=== PATIENT | male | born 1965 | race Caucasian/White ===

== ENCOUNTER 2018-02-05 13:44 | Observation (INO) | payer BC ==
[~2018-02-05] VITALS: Ht 175.3 cm; Wt 196.4 kg
[2018-02-05] VITALS (7 sets, daily range): BP systolic 89–148; BP diastolic 65–90; PULSE 94–130; RESP 16–18; TEMP 99.1; O2SAT 97–98
[~2018-02-05 13:44] MED LIST: ATEN100T PO; BUPR100T4 PO; DIGO0.25 PO; LOSA100T2 PO; MATZ240T PO; XARE20TA PO
[2018-02-05] MEDS ORDERED: METOPROLOL TARTRATE 5 MG/5 ML VIAL IV PUSH ONE (14:15)
--- NOTE | 2018-02-05 14:18 | PD ---
HPI Chief Complaint: Cardiac Complaint Time Seen by Provider: 13:53 Travel History International Travel<30 days: No Contact w/Intl Traveler<30days: No Traveled to known affect area: No History of Present Illness HPI 52 y/o male presents with atrial flutter and was sent from Dr. Becerril's office for rate control and further care. He states that he felt like he developed the symptoms this morning and this was confirmed that he was in atrial flutter again at Dr. Becerril's office. He states he has been off his digoxin for the past week. He denies any other concurrent complaints other than palpitations. Quality is irregular. Severity is in the 120s. He denies specific modifying factors. Duration is since this morning. PFSH Past Medical History Atrial Fibrillation: Yes Hypertension: Yes Tetanus Vaccination: > 5 Years Influenza Vaccination: No ?: Not Social History Alcohol Use: No Tobacco Use: No Substance Use: No Allergies-Medications (Allergen,Severity, Reaction): Coded Allergies: No Known Allergies (Unverified , 09/11/16) Reported Meds & Prescriptions Reported Meds & Active Scripts Active Reported Digoxin 0.25 Mg Tab 0.25 Mg PO DAILY Matzim LA (Diltiazem ER 24 HR) 240 Mg Jael 240 Mg PO DAILY Bupropion HCl 100 Mg Tab 100 Mg PO BID Losartan-Hydrochlorothiazide 100-25 Mg Tab 1 Tab PO DAILY Atenolol 100 Mg Tab 100 Mg PO BID Xarelto (Rivaroxaban) 20 Mg Tab 20 Mg PO DAILY Review of Systems Except as stated in HPI: all other systems reviewed are Neg Physical Exam Narrative GENERAL: 52 y/o male in no apparent distress SKIN: Focused skin assessment warm/dry. HEAD: Atraumatic. Normocephalic. EYES: Pupils equal and round. No scleral icterus. No injection or drainage. ENT: No nasal bleeding or discharge. Mucous membranes pink and moist. NECK: Trachea midline. CARDIOVASCULAR: Regular rate and rhythm. RESPIRATORY: No accessory muscle use. no increased effort. GASTROINTESTINAL: Abdomen soft, non-tender, nondistended. MUSCULOSKELETAL: No obvious deformities. NEUROLOGICAL: Awake and alert. No obvious cranial nerve deficits. Motor grossly within normal limits. Normal speech. PSYCHIATRIC: Appropriate mood and affect; insight and judgment normal. Data Data Last Documented VS Vital Signs Date Time Temp Pulse Resp B/P (MAP) Pulse Ox O2 Delivery O2 Flow Rate FiO2 02/05/18 14:09 97 Room Air 02/05/18 14:03 110 18 02/05/18 13:50 99.1 Orders Orders Thyroid Stimulating Hormone (02/05/18 14:03) Magnesium (Mg) (02/05/18 14:03) Phosphorus (Po4) (02/05/18 14:03) Complete Blood Count With Diff (02/05/18 14:03) Comprehensive Metabolic Panel (02/05/18 14:03) Ckmb (Isoenzyme) Profile (02/05/18 14:03) Troponin I (02/05/18 14:03) Act Partial Throm Time (Ptt) (02/05/18 14:03) Prothrombin Time / Inr (Pt) (02/05/18 14:03) B-Type Natriuretic Peptide (02/05/18 14:03) Chest, Single Ap (02/05/18 ) Electrocardiogram (02/05/18 ) Iv Access Insert/Monitor (02/05/18 14:03) Ecg Monitoring (02/05/18 14:03) Oximetry (02/05/18 14:03) Metoprolol Tartrate Inj (Lopressor Inj) (02/05/18 14:15) CKMB (02/05/18 14:15) CKMB% (02/05/18 14:15) Digoxin Inj (Lanoxin Inj) (02/05/18 15:45) Diltiazem (Cardizem) (02/05/18 15:45) Dextrose 5% In Wate... W/Amiodarone Inj (02/05/18 15:49) Sodium Chloride 0.9% Flush (Ns Flush) (02/05/18 15:45) Dextrose 5% In Wate... W/Amiodarone Inj (02/05/18 15:34) Admit Order (Ed Use Only) (02/05/18 15:47) Labs Laboratory Tests Test 02/05/18 14:10 02/05/18 14:15 Prothrombin Time 10.9 SEC Prothromb Time International Ratio 1.1 RATIO Activated Partial Thromboplast Time 30.1 SEC White Blood Count 11.0 TH/MM3 Red Blood Count 5.53 MIL/MM3 Hemoglobin 14.4 GM/DL Hematocrit 43.3 % Mean Corpuscular Volume 78.4 FL Mean Corpuscular Hemoglobin 26.1 PG Mean Corpuscular Hemoglobin Concent 33.3 % Red Cell Distribution Width 14.9 % Platelet Count 277 TH/MM3 Mean Platelet Volume 8.1 FL Neutrophils (%) (Auto) 74.7 % Lymphocytes (%) (Auto) 16.4 % Monocytes (%) (Auto) 7.1 % Eosinophils (%) (Auto) 1.3 % Basophils (%) (Auto) 0.5 % Neutrophils # (Auto) 8.2 TH/MM3 Lymphocytes # (Auto) 1.8 TH/MM3 Monocytes # (Auto) 0.8 TH/MM3 Eosinophils # (Auto) 0.1 TH/MM3 Basophils # (Auto) 0.1 TH/MM3 CBC Comment DIFF FINAL Differential Comment Blood Urea Nitrogen 20 MG/DL Creatinine 1.01 MG/DL Random Glucose 92 MG/DL Total Protein 7.4 GM/DL Albumin 3.7 GM/DL Calcium Level 9.1 MG/DL Phosphorus Level 2.9 MG/DL Magnesium Level 2.0 MG/DL Alkaline Phosphatase 72 U/L Aspartate Amino Transf (AST/SGOT) 29 U/L Alanine Aminotransferase (ALT/SGPT) 42 U/L Total Bilirubin 0.4 MG/DL Sodium Level 140 MEQ/L Potassium Level 4.0 MEQ/L Chloride Level 106 MEQ/L Carbon Dioxide Level 26.5 MEQ/L Anion Gap 8 MEQ/L Estimat Glomerular Filtration Rate 78 ML/MIN Total Creatine Kinase 349 U/L Creatine Kinase MB 10.0 NG/ML Creatine Kinase MB % 2.9 % Troponin I LESS THAN 0.02 NG/ML B-Type Natriuretic Peptide 143 PG/ML Thyroid Stimulating Hormone 3rd Gen 1.290 uIU/ML MDM Medical Decision Making Medical Screen Exam Complete: Yes Emergency Medical Condition: Yes Medical Record Reviewed: Yes (pmh confirmed) Interpretation(s) CBC & BMP Diagram 02/05/18 14:15 Total Protein 7.4, Albumin 3.7, Calcium Level 9.1, Phosphorus Level 2.9, Magnesium Level 2.0, Alkaline Phosphatase 72, Aspartate Amino Transf (AST/SGOT) 29, Alanine Aminotransferase (ALT/SGPT) 42, Total Bilirubin 0.4 Last 24 hours Impressions Chest X-Ray 02/05/18 0000 Signed Impressions: Service Date/Time: Monday, February 05, 2018 14:37 - CONCLUSION: 1. No acute cardiopulmonary disease. Adams Menard MD Differential Diagnosis A flutter, A. fib, electrolyte abnormality Narrative Course we will check blood work, imaging and reevaluate, patient given small dose of IV metoprolol but this quickly wore off and we are out of IV Cardizem. Will discuss with his form setter Will dose with amiodarone after discussion with form setter and admit to the hospital for further care. Critical Care Narrative Aggregate critical care time was 35 minutes. Time to perform other separately billable procedures was not included in the critical care time. My time did not include minutes spent treating any other patients simultaneously or on activities that did not directly contribute to the patient's treatment. The services I provided to this patient were to treat and/or prevent clinically significant deterioration that could result in: hypotension, I provided critical care services requiring my management, as noted below: Chart data review, documentation time, medication orders and management, vital sign assessments/reviewing monitor data, ordering and reviewing lab tests, ordering and interpreting/reviewing x-rays and diagnostic studies, care of the patient and discussion of the patient with the admitting physicians. Physician Communication Physician Communication dr becerril originally requested IV digoxin and p.o. Cardizem but given patient just went into this rhythm he requested amiodarone bolus and drip which was ordered. He states not to give IV digoxin or p.o. Cardizem. dr sanchez agrees to admit Diagnosis Primary Impression: Atrial flutter with rapid ventricular response Admitting Information Admitting Physician Requests: Admit Amber Jackson MD Feb 05, 2018 14:18
[2018-02-05 14:29] LABS: AUTOMATED NEUTROPHIL # 8.2 TH/MM3 (1.8-7.7); BASOPHIL # 0.1 TH/MM3 (0-0.2); BASOPHIL % 0.5 % (0.0-2.0); EOSINOPHIL # 0.1 TH/MM3 (0-0.4); EOSINOPHIL % 1.3 % (0.0-4.0); HEMATOCRIT 43.3 % (39.0-51.0); HEMOGLOBIN 14.4 GM/DL (13.0-17.0); LYMPH % 16.4 % (9.0-44.0); LYMPHOCYTE # 1.8 TH/MM3 (1.0-4.8); MEAN CELL VOLUME 78.4 FL (80.0-100.0); MEAN CORPUSCULAR HEMOGLOBIN 26.1 PG (27.0-34.0); MEAN CORPUSCULAR HGB CONC 33.3 % (32.0-36.0); MEAN PLATELET VOLUME 8.1 FL (7.0-11.0); MONO % 7.1 % (0.0-8.0); MONOCYTE # 0.8 TH/MM3 (0-0.9); NEUT % 74.7 % (16.0-70.0); PLATELET COUNT 277 TH/MM3 (150-450); RED BLOOD COUNT 5.53 MIL/MM3 (4.50-5.90); RED CELL DISTRIBUTION WIDTH 14.9 % (11.6-17.2)
[2018-02-05 14:43] LABS: INTERNATIONAL NORMALIZED RATIO 1.1 RATIO; PROTHROMBIN TIME - PATIENT 10.9 SEC (9.8-11.6)
[2018-02-05 14:48] LABS: ALBUMIN 3.7 GM/DL (3.4-5.0); ALT (GPT) 42 U/L (12-78); AST (GOT) 29 U/L (15-37); BICARBONATE 26.5 MEQ/L (21.0-32.0); BLOOD UREA NITROGEN 20 MG/DL (7-18); CALCIUM 9.1 MG/DL (8.5-10.1); CHLORIDE 106 MEQ/L (98-107); CREATININE 1.01 MG/DL (0.60-1.30); GLOMERULAR FILTRATION RATE 78 ML/MIN (>89); GLUCOSE,RANDOM 92 MG/DL (74-106); PHOSPHORUS 2.9 MG/DL (2.5-4.9); SODIUM (NA) 140 MEQ/L (136-145)
[2018-02-05 14:57] LABS: ALKALINE PHOSPHATASE 72 U/L (45-117); TOTAL BILIRUBIN ADULT 0.4 MG/DL (0.2-1.0); TOTAL PROTEIN 7.4 GM/DL (6.4-8.2); TROPONIN I LESS THAN 0.02 NG/ML (0.02-0.05)
--- NOTE | 2018-02-05 15:22 | RADRPT ---
EXAM DATE/TIME: 02/05/2018 14:37 [facility] COMPARISON: No previous studies available for comparison. INDICATIONS : Palpitations MEDICAL HISTORY : atrial fibrillation SURGICAL HISTORY : None. ENCOUNTER: Initial ACUITY: 1 day PAIN SCORE: 0/10 LOCATION: Bilateral chest FINDINGS: A single view of the chest demonstrates the lungs to be symmetrically aerated without evidence of mas s, infiltrate or effusion. Cardiomegaly. The cardiomediastinal contours are unremarkable. Osseous s tructures are intact. CONCLUSION: 1. No acute cardiopulmonary disease. Adams Menard MD on February 05, 2018 at 15:19 Board Certified Radiologist. This report was verified electronically.
[2018-02-05] MEDS ORDERED: AMIODARONE INJ 150 MG in DEXTROSE 5% IN WATER 100ML INJ 97 ML IV ONE ×2 (15:34)
[2018-02-05] MEDS ORDERED: DILTIAZEM HCL 60 MG TAB PO ONE (15:45)
[2018-02-05] MEDS ORDERED: DIGOXIN 0.5 MG/2 ML VIAL IV PUSH ONE (15:45)
[2018-02-05] MEDS ORDERED: SODIUM CHLORIDE 0.9% FLUSH 10 ML FLUSH IVF PRN (15:45)
[2018-02-05] MEDS ORDERED: AMIODARONE INJ 450 MG in DEXTROSE 5% IN WATE(EXCEL) INJ 241 ML IV SCH ×2 (15:49)
[2018-02-05] MEDS ORDERED: SENNOSIDES 8.6 MG TAB PO PRN (16:00)
[2018-02-05] MEDS ORDERED: NALOXONE HCL 0.4 MG/ML AMP IV PUSH PRN (16:00)
[2018-02-05] MEDS ORDERED: BISACODYL 10 MG SUPP RECTAL PRN (16:00)
[2018-02-05] MEDS ORDERED: MAGNESIUM HYDROXIDE SUSP 30 ML CUP PO PRN (16:00)
[2018-02-05] MEDS ORDERED: LACTULOSE SYRUP 20 GM/30 ML CUP PO PRN (16:00)
[2018-02-05] MEDS ORDERED: SODIUM CHLORIDE 0.9% FLUSH 10 ML FLUSH IV FLUSH PRN (16:00)
--- NOTE | 2018-02-05 17:53 | HHI.HP ---
[facility] Non-Staff Admission Diagnosis atrial flutter with rvr Diagnoses: (1) Atrial flutter with rapid ventricular response Diagnosis: Principal Chief Complaint: I knew I was in a.flutter that is why I went to my [employer] office, then he sent me here. Travel History International Travel<30 Days: No Contact w/Intl Traveler <30 Da: No Traveled to Known Affected Are: No History of Present Illness Written by Daniel Bowen, acting as scribe for Dr. Degroot on 02/05/18 at 17:53. 52-year-old male with PHM of a. flutter with cardioversion, HTN, and DANYEL who states he was at home this morning when he felt as if he was anxious. He took his BP and noticed that his HR was elevated, he knew that he was in atrial flutter so he decided to go to his boat [employer] office . He had an EKG done and was noted to be in a flutter, he was sent to the ER for further rate control. He repots being compliant with his Xarelto at home, but does state that he has been out of his digoxin for the past week. He will be having bariatric surgery soon and was hoping to come off of as many medications as possible. He denies any chest pain, SOB, fevers, chills, nausea, vomiting, constipation, diarrhea, dizziness, lightheadedness, chest pain or pressure. He does report a cough which he states has been going on for the past 3 days, his mother at bedside states patient has always had a cough. Patient states that this time this cough has been to the point that he will have a coughing spell and this will make him SOB. Cough is productive at times. He tried a cough suppressant OTC. He also repots right ear pain which began this past Sunday, but is much better now. Overall he repots feeling fine and would like to know if he can eat. Review of Systems Except as stated in HPI: all other systems reviewed are Neg Past Family Social History Past Medical History atrial flutter with cardioversion on August of 2016 HTN DANYEL obesity Past Surgical History Right orthoscopic knee surgery Reported Medications Reported Meds & Active Scripts Active Reported Digoxin 0.25 Mg Tab 0.25 Mg PO DAILY Matzim LA (Diltiazem ER 24 HR) 240 Mg Jael 240 Mg PO DAILY Bupropion HCl 100 Mg Tab 100 Mg PO BID Losartan-Hydrochlorothiazide 100-25 Mg Tab 1 Tab PO DAILY Atenolol 100 Mg Tab 100 Mg PO BID Xarelto (Rivaroxaban) 20 Mg Tab 20 Mg PO DAILY Allergies: Coded Allergies: No Known Allergies (Unverified , 09/11/16) Family History Denies any past family history Social History Denies any tobacco, alcohol or illicit drug use Physical Exam Vital Signs Vital Signs Date Time Temp Pulse Resp B/P (MAP) Pulse Ox O2 Delivery O2 Flow Rate FiO2 02/05/18 14:09 97 Room Air 02/05/18 14:03 110 18 Room Air 02/05/18 14:03 110 18 120/77 (91) 97 Room Air 02/05/18 13:50 99.1 125 18 148/90 (109) 97 Physical Exam GENERAL: This is well-developed obese male, in no apparent distress. SKIN: No rashes, ecchymoses or lesions. Cool and dry. HEAD: Atraumatic. Normocephalic. EYES: Pupils equal round and reactive. Extraocular motions intact. No scleral icterus. No injection or drainage. ENT: Nose without bleeding, purulent drainage. Throat without erythema, tonsillar hypertrophy or exudate. Uvula midline. Airway patent. Right ear canal with small pimple, no purulent drainage noted. NECK: Trachea midline. No JVD or lymphadenopathy. Supple, nontender, no meningeal signs. CARDIOVASCULAR: Irregular rate and rhythm without murmurs, gallops, or rubs. RESPIRATORY: Clear to auscultation. Breath sounds equal bilaterally. No wheezes , rales, or rhonchi. GASTROINTESTINAL: Abdomen soft, non-tender, nondistended. Normoactive bowel sounds. No guarding. MUSCULOSKELETAL: Extremities without clubbing, cyanosis, or edema. No joint tenderness, effusion, or edema noted. No calf tenderness. NEUROLOGICAL: Awake and alert. Cranial nerves II through XII grossly intact. Motor and sensory grossly within normal limits. Five out of 5 muscle strength in all muscle groups. Normal speech. Laboratory Laboratory Tests Test 02/05/18 14:10 02/05/18 14:15 Prothrombin Time 10.9 Prothromb Time International Ratio 1.1 Activated Partial Thromboplast Time 30.1 White Blood Count 11.0 Red Blood Count 5.53 Hemoglobin 14.4 Hematocrit 43.3 Mean Corpuscular Volume 78.4 Mean Corpuscular Hemoglobin 26.1 Mean Corpuscular Hemoglobin Concent 33.3 Red Cell Distribution Width 14.9 Platelet Count 277 Mean Platelet Volume 8.1 Neutrophils (%) (Auto) 74.7 Lymphocytes (%) (Auto) 16.4 Monocytes (%) (Auto) 7.1 Eosinophils (%) (Auto) 1.3 Basophils (%) (Auto) 0.5 Neutrophils # (Auto) 8.2 Lymphocytes # (Auto) 1.8 Monocytes # (Auto) 0.8 Eosinophils # (Auto) 0.1 Basophils # (Auto) 0.1 CBC Comment DIFF FINAL Differential Comment Blood Urea Nitrogen 20 Creatinine 1.01 Random Glucose 92 Total Protein 7.4 Albumin 3.7 Calcium Level 9.1 Phosphorus Level 2.9 Magnesium Level 2.0 Alkaline Phosphatase 72 Aspartate Amino Transf (AST/SGOT) 29 Alanine Aminotransferase (ALT/SGPT) 42 Total Bilirubin 0.4 Sodium Level 140 Potassium Level 4.0 Chloride Level 106 Carbon Dioxide Level 26.5 Anion Gap 8 Estimat Glomerular Filtration Rate 78 Total Creatine Kinase 349 Creatine Kinase MB 10.0 Creatine Kinase MB % 2.9 Troponin I LESS THAN 0.02 B-Type Natriuretic Peptide 143 Thyroid Stimulating Hormone 3rd Gen 1.290 Result Diagram: 02/05/18 1415 02/05/18 1415 Imaging Last Impressions Chest X-Ray 02/05/18 0000 Signed Impressions: Service Date/Time: Monday, February 05, 2018 14:37 - CONCLUSION: 1. No acute cardiopulmonary disease. Adams Menard MD Caprini VTE Risk Assessment Caprini VTE Risk Assessment: No/Low Risk (score <= 1) Caprini Risk Assessment Model Point Value = 1 Point Value = 2 Point Value = 3 Point Value = 5 Age 41-60 Minor surgery BMI > 25 kg/m2 Swollen legs Varicose veins or History of unexplained or recurrent spontaneous Oral contraceptives or hormone replacement Sepsis (< 1 month) Serious lung disease, including pneumonia (< 1 month) Abnormal pulmonary function Acute myocardial infarction Congestive heart failure (< 1 month) History of inflammatory bowel disease Medical patient at bed rest Age 61-74 Arthroscopic surgery Major open surgery (> 45 min) Laparoscopic surgery (> 45 min) Malignancy Confined to bed (> 72 hours) Immobilizing plaster cast Central venous access Age >= 75 History of VTE Family history of VTE Factor V Leiden Prothrombin [id number] Lupus anticoagulant Anticardiolipin antibodies Elevated serum homocysteine Heparin-induced thrombocytopenia Other congenital or acquired thrombophilia Stroke (< 1 month) Elective arthroplasty Hip, pelvis, or leg fracture Acute spinal cord injury (< 1 month) Prophylaxis Regimen Total Risk Factor Score Risk Level Prophylaxis Regimen 0-1 Low Early ambulation 2 Moderate Order ONE of the following: *Sequential Compression Device (SCD) *Heparin 5000 units SQ BID 3-4 Higher Order ONE of the following medications: *Heparin 5000 units SQ TID *Enoxaparin/Lovenox 40 mg SQ daily (WT < 150 kg, CrCl > 30 mL/min) *Enoxaparin/Lovenox 30 mg SQ daily (WT < 150 kg, CrCl > 10-29 mL/min) *Enoxaparin/Lovenox 30 mg SQ BID (WT < 150 kg, CrCl > 30 mL/min) AND/OR *Sequential Compression Device (SCD) 5 or more Highest Order ONE of the following medications: *Heparin 5000 units SQ TID (Preferred with Epidurals) *Enoxaparin/Lovenox 40 mg SQ daily (WT < 150 kg, CrCl > 30 mL/min) *Enoxaparin/Lovenox 30 mg SQ daily (WT < 150 kg, CrCl > 10-29 mL/min) *Enoxaparin/Lovenox 30 mg SQ BID (WT < 150 kg, CrCl > 30 mL/min) AND *Sequential Compression Device (SCD) Assessment and Plan Assessment and Plan 52-year-old male with PMH of a.flutter with previous cardioversion, HTN, obesity , and DANYEL who presented to office and was noted to be in a.flutter. He was sent to the ER for further evaluation and rate control. Atrial flutter, uncontrolled - Patient with history of cardioversion in August of 2016, followed by - Ran out of his Digoxin at home, likely the reason why he is back in a.flutter - EKG personally reviewed, showing atrial flutter with variable conduction - CBC with no anemia, electrolytes WNL, troponin negative. TSH WNL - Shaper Hand recommended IV amiodarone with loading dose and gtt to follow, no IV digoxin or PO Cardizem. Anticoagulated on Xarelto - Consult for cardiology placed, appreciate further evaluation and recommendations - Will place in observation HTN, controlled - BP on admission on the high side, recheck 120/77 - Hold off on antihypertensives, BP stable and will be placed on Amiodarone gtt Cough - Chest x-ray personally reviewed, no acute process - CBC with no leukocytosis - BNP 143 - Likely PND/allergies - Right ear pain improving, no fevers reported - Oxygen saturation stable on room air -Tessalon pearls PRN DANYEL- home CPAP machine DVT prophylaxis- Xarelto Discussed Condition With Patient, mother at bedside, patient, and ER doctor. This note was transcribed by vibha Bowen. I, Dr. Kwaku Degroot personally performed the history, physical exam, and medical decision making; and confirmed the accuracy of the information in the transcribed note. Authenticated by Dr. Kwaku Degroot on 02/05/18 at 22:12. Daniel Bowen Feb 05, 2018 17:53 Kwaku Degroot MD Feb 05, 2018 22:13
[2018-02-05] MEDS ORDERED: BENZONATATE 100 MG CAP PO PRN (18:30)
[2018-02-05] MEDS: AMIODARONE INJ 450 MG in SODIUM CHLOR 0.9% (EXCEL) INJ 250 ML IV SCH (18:45)
[2018-02-05] MEDS: SODIUM CHLORIDE 0.9% FLUSH 10 ML FLUSH IV FLUSH SCH (21:51)
[2018-02-06] VITALS (8 sets, daily range): BP systolic 90–128; BP diastolic 56–89; PULSE 78–132; RESP 16–22; TEMP 98; O2SAT 96–99
[2018-02-06] MEDS: AMIODARONE INJ 450 MG in SODIUM CHLOR 0.9% (EXCEL) INJ 250 ML IV SCH (05:18)
[2018-02-06] MEDS ORDERED: RIVAROXABAN 20 MG TAB PO SCH (09:00)
[2018-02-06 09:15] LABS: AUTOMATED NEUTROPHIL # 6.8 TH/MM3 (1.8-7.7); BASOPHIL # 0.1 TH/MM3 (0-0.2); BASOPHIL % 0.7 % (0.0-2.0); EOSINOPHIL # 0.1 TH/MM3 (0-0.4); HEMOGLOBIN 14.7 GM/DL (13.0-17.0); LYMPH % 17.1 % (9.0-44.0); LYMPHOCYTE # 1.5 TH/MM3 (1.0-4.8); MEAN CELL VOLUME 78.7 FL (80.0-100.0); MEAN CORPUSCULAR HEMOGLOBIN 26.4 PG (27.0-34.0); MEAN CORPUSCULAR HGB CONC 33.6 % (32.0-36.0); MEAN PLATELET VOLUME 8.2 FL (7.0-11.0); MONO % 6.5 % (0.0-8.0); MONOCYTE # 0.6 TH/MM3 (0-0.9); NEUT % 74.7 % (16.0-70.0); PLATELET COUNT 257 TH/MM3 (150-450); RED BLOOD COUNT 5.59 MIL/MM3 (4.50-5.90); RED CELL DISTRIBUTION WIDTH 14.8 % (11.6-17.2)
[2018-02-06 09:48] LABS: ALBUMIN 3.7 GM/DL (3.4-5.0); AST (GOT) 27 U/L (15-37); BICARBONATE 29.9 MEQ/L (21.0-32.0); BLOOD UREA NITROGEN 20 MG/DL (7-18); CALCIUM 9.2 MG/DL (8.5-10.1); CHLORIDE 104 MEQ/L (98-107); CREATININE 1.07 MG/DL (0.60-1.30); GLOMERULAR FILTRATION RATE 73 ML/MIN (>89); GLUCOSE,RANDOM 105 MG/DL (74-106); SODIUM (NA) 141 MEQ/L (136-145)
[2018-02-06] MEDS: SODIUM CHLORIDE 0.9% FLUSH 10 ML FLUSH IV FLUSH SCH (09:48)
[2018-02-06 09:50] LABS: ALT (GPT) 42 U/L (12-78)
[2018-02-06 09:52] LABS: ALKALINE PHOSPHATASE 67 U/L (45-117); TOTAL BILIRUBIN ADULT 0.8 MG/DL (0.2-1.0); TOTAL PROTEIN 7.6 GM/DL (6.4-8.2)
--- NOTE | 2018-02-06 10:39 | PD.CONS ---
HPI Service Cardiology-Dr. Becerril Consult Requested By Dr. Jackson Reason for Consult Atrial flutter Primary Care Physician Non-Staff History of Present Illness Pleasant 52 year old male well known to our practice, presented to our office yesterday with complaints of rapid heart rate, shortness of breath and feeling like he was having an anxiety attack. He reported that he ran out of his digoxin about 5 days ago. He also reported having a cough, for which he took cold medication for. iEKG was completed in office that showed pateint was in atrial flutter. He was sent to ER. He has a known history of atrial fibrillation anticoagulated with Xarelto 20mg daily. He had a FREDERICK/cardioversion 08/2016 and had been in SR until yesterday. Past medical history of HTN, LVH, Sleep apnea, and obesity for which he is planning gastric bypass at [facility] next month. (Erica Herzog) Review of Systems Consitutional: DENIES: Fatigue, Fever, Chills, Weight gain, Weight loss Eyes: DENIES: Amaurosis Fugax, Change in vision HEENT: DENIES: Lightheadedness, Change in hearing Respiratory: COMPLAINS OF: See HPI Cardiovascular: COMPLAINS OF: See HPI Gastrointestinal: DENIES: Nausea, Vomiting, Change in bowel habits, Reflux, Bloody stools, Melena Genitourinary: DENIES: Urinary incontinence, Difficulty voiding Integumentary: DENIES: Rash Neurologic: DENIES: Tingling or numbness, Memory problems, Poor Balance, Stroke symptoms Musculoskeletal: DENIES: Joint pain, Muscle pain, Limited range of motion, Back pain Psychiatric: COMPLAINS OF: Anxiety (related to rapid heart rate) Hematologic: DENIES: Bruising tendencies, Bleeding tendencies Endocrine: DENIES: Weight gain, Weight loss, Thyroid disease (Erica Herzog) Past Family Social History Allergies: Coded Allergies: No Known Allergies (Unverified , 09/11/16) Past Medical History Atrial fibrillation, status post FREDERICK/cardioversion 09/11/2016. Chest pain SOB HTN LVH Sleep apnea Past Surgical History FREDERICK/Cardioversion 09/11/2016 Colonoscopy 2014 Knee surgery 2011 Reported Medications Reported Meds & Active Scripts Active Reported Digoxin 0.25 Mg Tab 0.25 Mg PO DAILY Matzim LA (Diltiazem ER 24 HR) 240 Mg Jael 240 Mg PO DAILY Bupropion HCl 100 Mg Tab 100 Mg PO BID Losartan-Hydrochlorothiazide 100-25 Mg Tab 1 Tab PO DAILY Atenolol 100 Mg Tab 100 Mg PO BID Xarelto (Rivaroxaban) 20 Mg Tab 20 Mg PO DAILY Active Ordered Medications Current Medications Medications (Trade) Dose Ordered Sig/Daphney Route Start Time Stop Time Status Last Admin (NS Flush) 2 ml UNSCH PRN IV FLUSH 02/05/18 16:00 (NS Flush) 2 ml BID IV FLUSH 02/05/18 21:00 02/06/18 09:48 (Narcan Inj) 0.4 mg UNSCH PRN IV PUSH 02/05/18 16:00 (Milk Of Magnesia Liq) 30 ml Q12H PRN PO 02/05/18 16:00 (Senokot) 17.2 mg Q12H PRN PO 02/05/18 16:00 (Dulcolax Supp) 10 mg DAILY PRN RECTAL 02/05/18 16:00 (Lactulose Liq) 30 ml DAILY PRN PO 02/05/18 16:00 (Xarelto) 20 mg DAILY PO 02/06/18 09:00 Amiodarone HCl 450 mg/Sodium Chloride 259 ml @ 33 mls/hr Q7H51M IV 02/05/18 17:30 02/06/18 05:18 (Tessalon) 200 mg TID PRN PO 02/05/18 18:30 Social History Non Smoker No ETOH use (Shadeed,Januaryruthie DAVISP) Physical Exam Vital Signs Vital Signs Date Time Temp Pulse Resp B/P (MAP) Pulse Ox O2 Delivery O2 Flow Rate FiO2 02/06/18 09:00 126 21 90/64 (73) Room Air 02/06/18 09:00 126 90/64 02/06/18 08:00 124 18 96 02/06/18 06:43 132 16 121/56 (77) 97 Room Air 02/06/18 05:18 125 107/77 02/06/18 01:17 126 107/77 02/06/18 01:00 126 16 107/86 (93) 99 Room Air 02/06/18 00:00 123 16 97/69 (78) 98 Room Air 02/05/18 23:00 130 16 115/74 (88) 98 Room Air 02/05/18 21:00 94 16 89/65 (73) 98 Room Air 02/05/18 19:48 126 16 103/75 (84) 98 Room Air 02/05/18 19:04 126 107/77 02/05/18 18:45 118 106/69 02/05/18 18:30 128 18 106/69 (81) 98 Room Air 02/05/18 18:04 130 115/75 02/05/18 14:09 97 Room Air 02/05/18 14:03 110 18 Room Air 02/05/18 14:03 110 18 120/77 (91) 97 Room Air 02/05/18 13:50 99.1 125 18 148/90 (109) 97 Physical Exam GENERAL: Middle aged, pleasant, obese male SKIN: Warm and dry. HEAD: Atraumatic. Normocephalic. EYES: .No injection or drainage. ENT: No nasal bleeding or discharge. Mucous membranes pink and moist. NECK: Trachea midline. No JVD. CARDIOVASCULAR: Atrial flutter RESPIRATORY: No accessory muscle use. Clear to auscultation. Breath sounds equal bilaterally. GASTROINTESTINAL: Abdomen soft, obese, non-tender, nondistended. Hepatic and splenic margins not palpable. MUSCULOSKELETAL: Extremities without clubbing, cyanosis, or edema. No obvious deformities. NEUROLOGICAL: Awake and alert. No obvious cranial nerve deficits. Motor grossly within normal limits. Five out of 5 muscle strength in the arms and legs. Normal speech. PSYCHIATRIC: Appropriate mood and affect; insight and judgment normal. Laboratory Laboratory Tests Test 02/05/18 14:10 02/05/18 14:15 02/06/18 08:00 Prothrombin Time 10.9 Prothromb Time International Ratio 1.1 Activated Partial Thromboplast Time 30.1 White Blood Count 11.0 9.0 Red Blood Count 5.53 5.59 Hemoglobin 14.4 14.7 Hematocrit 43.3 44.0 Mean Corpuscular Volume 78.4 78.7 Mean Corpuscular Hemoglobin 26.1 26.4 Mean Corpuscular Hemoglobin Concent 33.3 33.6 Red Cell Distribution Width 14.9 14.8 Platelet Count 277 257 Mean Platelet Volume 8.1 8.2 Neutrophils (%) (Auto) 74.7 74.7 Lymphocytes (%) (Auto) 16.4 17.1 Monocytes (%) (Auto) 7.1 6.5 Eosinophils (%) (Auto) 1.3 1.0 Basophils (%) (Auto) 0.5 0.7 Neutrophils # (Auto) 8.2 6.8 Lymphocytes # (Auto) 1.8 1.5 Monocytes # (Auto) 0.8 0.6 Eosinophils # (Auto) 0.1 0.1 Basophils # (Auto) 0.1 0.1 CBC Comment DIFF FINAL DIFF FINAL Differential Comment Blood Urea Nitrogen 20 20 Creatinine 1.01 1.07 Random Glucose 92 105 Total Protein 7.4 7.6 Albumin 3.7 3.7 Calcium Level 9.1 9.2 Phosphorus Level 2.9 Magnesium Level 2.0 Alkaline Phosphatase 72 67 Aspartate Amino Transf (AST/SGOT) 29 27 Alanine Aminotransferase (ALT/SGPT) 42 42 Total Bilirubin 0.4 0.8 Sodium Level 140 141 Potassium Level 4.0 4.0 Chloride Level 106 104 Carbon Dioxide Level 26.5 29.9 Anion Gap 8 7 Estimat Glomerular Filtration Rate 78 73 Total Creatine Kinase 349 Creatine Kinase MB 10.0 Creatine Kinase MB % 2.9 Troponin I LESS THAN 0.02 B-Type Natriuretic Peptide 143 Thyroid Stimulating Hormone 3rd Gen 1.290 (Erica Herzog) Result Diagram: 02/06/18 0800 02/06/18 0800 Imaging Last 72 hours Impressions Chest X-Ray 02/05/18 0000 Signed Impressions: Service Date/Time: Monday, February 05, 2018 14:37 - CONCLUSION: 1. No acute cardiopulmonary disease. Adams Menard MD (Erica HerzogP) Assessment and Plan Assessment and Plan Atrial flutter HTN Cough Plan On Amio drip and xarelto 20mg PO daily, plan for DC cardioversion today BP low Chest xray normal, BNP normal, pt denies SOB today. The patient was seen and evaluated by Dr. Becerril who completed face to face encounter and participated in care and management. (Erica Herzog) Assessment and Plan The exam, history, and the medical decision-making described in the above note were completed with the assistance of the mid-level provider. I reviewed and agree with the findings presented. I attest that I had a [id number] encounter with the patient on the same day, and personally performed and documented my assessment and findings in the medical record. risks of cardioversion reviewed pt appears to understand (Dmitry Becerril MD) JaredmeganErica Gilliam DAMIÁN Feb 06, 2018 10:39 Dmitry Becerril MD Feb 06, 2018 14:20
--- NOTE | 2018-02-06 11:27 | EKG ---
Date Performed: 02/06/2018 Time Performed: 10:54:43 PTAGE: 52 years EKG: Sinus rhythm WITH SINUS ARRHYTHMIA NORMAL ECG Compared to PREVIOUS TRACING , a fib no longer present DOCTOR: Iris Cummings Interpretating Date/Time 02/06/2018 11:25:18
[2018-02-06] MEDS ORDERED: PROPOFOL 200 MG/20 ML AMP ONE (14:30)
[2018-02-06] MEDS ORDERED: CHLORHEXIDINE GLUCONATE 2 % 1 PACK (2 CLOTHS) TOPICAL PRN (14:45)
[2018-02-06] MEDS ORDERED: LACTATED RINGER'S 1000 ML IV PRN (14:45)
[2018-02-06] MEDS ORDERED: SODIUM CHLORID 0.9% 500 ML IV PRN (14:45)
[2018-02-06] MEDS ORDERED: POVIDONE IODINE 5% (ANTISEPSIS KIT) 4 APPLICATIONS EACH NARE PRN (14:45)
[2018-02-06] MEDS ORDERED: METOPROLOL TARTRATE 25 MG TAB PO PRN (14:45)
--- NOTE | 2018-02-06 17:18 | HHI.PR ---
Subjective Remarks Follow-up for atrial flutter status post cardioversion. Post cardioversion patient is currently doing well. No fever or chills. No chest jones. No chest pain, shortness of breath. Cardiology cleared for discharge. Objective Vitals Vital Signs Date Time Temp Pulse Resp B/P (MAP) Pulse Ox O2 Delivery O2 Flow Rate FiO2 02/06/18 13:27 98.0 125 22 128/89 (102) 97 02/06/18 13:01 02/06/18 11:00 126 21 95/70 (78) 96 Room Air 02/06/18 09:00 126 21 90/64 (73) Room Air 02/06/18 09:00 126 90/64 02/06/18 08:00 124 18 96 02/06/18 06:43 132 16 121/56 (77) 97 Room Air 02/06/18 05:18 125 107/77 02/06/18 01:17 126 107/77 02/06/18 01:00 126 16 107/86 (93) 99 Room Air 02/06/18 00:00 123 16 97/69 (78) 98 Room Air 02/05/18 23:00 130 16 115/74 (88) 98 Room Air 02/05/18 21:00 94 16 89/65 (73) 98 Room Air 02/05/18 19:48 126 16 103/75 (84) 98 Room Air 02/05/18 19:04 126 107/77 02/05/18 18:45 118 106/69 02/05/18 18:30 128 18 106/69 (81) 98 Room Air 02/05/18 18:04 130 115/75 Result Diagram: 02/06/18 0800 02/06/18 0800 Imaging Last Impressions Chest X-Ray 02/05/18 0000 Signed Impressions: Service Date/Time: Monday, February 05, 2018 14:37 - CONCLUSION: 1. No acute cardiopulmonary disease. Adams Menard MD Objective Remarks GENERAL: Alert, oriented x 3, NAD. Slightly drowsy. SKIN: Warm and dry. HEAD: Normocephalic. EYES: No scleral icterus. No injection or drainage. NECK: Supple, trachea midline. No JVD or lymphadenopathy. CARDIOVASCULAR: Regular rate and rhythm without murmurs, gallops, or rubs. RESPIRATORY: Breath sounds equal bilaterally. No accessory muscle use. GASTROINTESTINAL: Abdomen soft, non-tender, nondistended. MUSCULOSKELETAL: No cyanosis, or edema. BACK: Nontender without obvious deformity. No CVA tenderness. Procedures Cardioversion 02/06/2018 A/P Problem List: (1) Atrial flutter with rapid ventricular response ICD Code: I48.92 - Unspecified atrial flutter Status: Acute Assessment and Plan 52-year-old male with PMH of a.flutter with previous cardioversion, HTN, obesity , and DANYEL who presented to office and was noted to be in a.flutter. He was sent to the ER for further evaluation and rate control. Atrial flutter, uncontrolled - Patient with history of cardioversion in August of 2016, followed by - Ran out of his Digoxin at home, likely the reason why he is back in a.flutter - EKG --> atrial flutter with variable conduction - CBC with no anemia, electrolytes WNL, troponin negative. TSH WNL - Dr. Becerril performed Cardioversion and subsequently cleared for discharge with no changes in medications. HTN, controlled - BP on admission on the high side, recheck 120/77 Cough - Chest x-ray personally reviewed, no acute process - CBC with no leukocytosis - BNP 143 - Likely PND/allergies - Right ear pain improving, no fevers reported - Oxygen saturation stable on room air -Tessalon pearls PRN DANYEL- home CPAP machine DVT prophylaxis- Xarelto Discharge patient to home Condition on discharge: Improved Heart healthy Diet as tolerated Ad Chantell activity Rx written: Continue home meds. Follow-up with primary care physician PRN and cardiology within two weeks. Immanuel Arzola DO Feb 06, 2018 17:18
--- NOTE | 2018-02-06 23:03 | EKG ---
Date Performed: 02/05/2018 Time Performed: 14:19:13 PTAGE: 52 years EKG: ATRIAL FIBRILLATION WITH RAPID VENTRICULAR RESPONSE BORDERLINE LEFT AXIS DEVIATION INCOMPLE TE RIGHT BUNDLE BRANCH BLOCK MODERATE ST DEPRESSION ABNORMAL ECG NO PREVIOUS TRACING DOCTOR: Iris Cummings Interpretating Date/Time 02/06/2018 23:03:25
--- NOTE | 2018-02-07 16:21 | EKG ---
Date Performed: 02/06/2018 Time Performed: 15:14:04 PTAGE: 52 years EKG: Sinus rhythm . Leftward axis Right bundle branch block Whenn compared to previous tracing, right bundle branch blo ck is New. Abnormal ECG PREVIOUS TRACING : 02/06/2018 10.54 DOCTOR: Hayder Felix Interpretating Date/Time 02/07/2018 16:20:57
== END 2018-02-06 17:48 | disposition home or self-care (01) ==
LOC: NEPC 13:44 → NEDA 15:48 → UNDOADMIN 15:48 → INTOOBSV 15:58 → NEDA 15:58 → NEDH 19:59 → NEDA 19:59 → HCIS 02-06 12:36 → NEDH 02-06 12:36 → UNDODISIN 02-06 17:48
PROVIDERS: ADMIT Hospitalist; ATTEND Hospitalist
DX: I48.92 Unspecified atrial flutter (principal); R00.2 Palpitations; I48.91 Unspecified atrial fibrillation; I95.9 Hypotension, unspecified; I10 Essential (primary) hypertension; R06.02 Shortness of breath; G47.33 Obstructive sleep apnea (adult) (pediatric); H92.01 Otalgia, right ear; F41.1 Generalized anxiety disorder; E66.9 Obesity, unspecified; Z68.44 Body mass index [BMI] 60.0-69.9, adult; Z79.01 Long term (current) use of anticoagulants; R79.89 Other specified abnormal findings of blood chemistry
CPT/HCPCS: 71045; 80053; 82550; 82552; 83735; 83880; 84100; 84443; 84484; 85025; 85610; 85730; 92960; 93005; 96374; 96375; 96376; 99291; G0378; J0282; J7050